=== PATIENT | male | born 1985 | race African-American/Black ===

== ENCOUNTER 2017-11-17 06:05 | Day surgery (SDC) | payer OTHER ==
[2017-11-17] MEDS ORDERED: dexameTHASONE 4 MG/ML 1ML VIAL (J1100) As Ordered (06:24)
[2017-11-17] MEDS ORDERED: LR 1,000 ML IV ×3 (06:30→09:15)
[2017-11-17] MEDS ORDERED: ONDANSETRON 4MG/2ML VIAL (J2405) As Ordered (07:04)
[2017-11-17] MEDS ORDERED: LIDOCAINE 2% INJ 100 MG/5 ML SDV (FOR ANES.) As Ordered (07:04)
[2017-11-17] MEDS ORDERED: MIDAZOLAM INJ 2 MG/2 ML VIAL (J2250) As Ordered (07:04)
[2017-11-17] MEDS ORDERED: fentaNYL 100 MCG/2 ML INJECTION (J3010) As Ordered ×2 (07:04→07:55)
[2017-11-17] MEDS ORDERED: PROPOFOL 200 MG/20 ML VIAL As Ordered (07:04)
[2017-11-17] MEDS ORDERED: GLYCOPYRROLATE INJ 0.2 MG/ML 2 ML VIAL As Ordered (07:04)
[2017-11-17] MEDS ORDERED: NEOSTIGMINE 10 MG/10 ML VIAL (J2710) As Ordered (07:04)
[2017-11-17] MEDS ORDERED: ROCURONIUM BROMIDE 50 MG/5 ML VIAL As Ordered ×2 (07:04→08:39)
[2017-11-17] MEDS: dexameTHASONE 4 MG/ML 1ML VIAL (J1100) IV (07:40)
[2017-11-17] MEDS: LIDOCAINE W/EPINEPHRINE 1% 20ML VIAL As Ordered (07:51)
[2017-11-17] MEDS ORDERED: LABETALOL HCL 100 MG/20 ML VIAL As Ordered (08:09)
[2017-11-17] MEDS: METHYLENE BLUE 0.5% (5MG/ML) 10 ML AMP (PROVAYBLUE)(Q9968 PER 1MG) As Ordered (08:10)
[2017-11-17] MEDS: EPINEPHrine 1MG/ML INJ 30ML MD-VIAL As Ordered (08:10)
[2017-11-17] MEDS: SODIUM CHLORIDE 0.9% NASAL GEL 15GM (AYR) As Ordered (08:34)
[2017-11-17] MEDS ORDERED: ONDANSETRON 4MG/2ML VIAL (J2405) IV (09:15)
[2017-11-17] MEDS ORDERED: fentaNYL 100 MCG/2 ML INJECTION (J3010) IV (09:15)
[2017-11-17] MEDS ORDERED: PERCOCET 5MG/325MG TAB As Ordered (09:24)
[2017-11-17] MEDS: PERCOCET 5MG/325MG TAB PO ×2 (09:24→10:10)
== END 2017-11-17 10:40 | disposition home or self-care (01) ==
LOC: M SDC 06:05
DX: J34.2 Deviated nasal septum (principal); R06.83 Snoring; J34.3 Hypertrophy of nasal turbinates; J32.9 Chronic sinusitis, unspecified; Z88.7 Allergy status to serum and vaccine
CPT/HCPCS: 30520

== ENCOUNTER → 2018-09-20 | Outpatient (CLI) | payer OTHER ==
[~2018-09-20] MED LIST: FISH306C PO
--- NOTE | 2018-09-20 19:35 | REP ---
MAXILLOFACIAL CT WITHOUT CONTRAST: HISTORY: Chronic maxillary sinusitis. Mucosal thickening is present in the right ethmoid and sphenoid sinus. There is complete opacification of the right sphenoid sinus. Mild mucosal thickening is present in the right ethmoid sinus. The remaining sinuses are clear. The osteomeatal units are patent. The middle and inferior nasal turbinates are partially paradoxical. The nasal septum is midline. The cribriform plate, medial swan of the orbits and optic canals are intact. The carotid canals form a segment of the posterolateral swan of the sphenoid sinus. The sphenoid sinus septa insert into the internal carotid canals swan. IMPRESSION: Sinus mucosal thickening as described above. Electronically Signed by Shalom Luna MD 09/21/2018 08:19 A
== END ==
LOC: M RAD 16:15
PROVIDERS: ATTEND Physician Assistant Medical
DX: J31.0 Chronic rhinitis (principal)

== ENCOUNTER 2018-10-19 07:01 | Day surgery (SDC) | payer OTHER ==
[~2018-10-19] VITALS: Ht 180.3 cm; Wt 89.8 kg
[~2018-10-19 07:01] MED LIST changes: +AMLO10TA5 PO; +CETI10CH PO; +LIDOCAINE 1% MDV 20ML VIAL SQ PRN; +LR 1,000 ML IV ONE
[2018-10-19] MEDS ORDERED: dexameTHASONE 4 MG/ML 1ML VIAL (J1100) IV ONE (07:45)
[2018-10-19] MEDS ORDERED: propofoL 200 MG/20 ML VIAL As Ordered ONE ×2 (07:51→10:43)
[2018-10-19] MEDS ORDERED: dexameTHASONE 4 MG/ML 1ML VIAL (J1100) As Ordered ONE (07:51)
[2018-10-19] MEDS ORDERED: LIDOCAINE 2% INJ 100 MG/5 ML SDV (FOR ANES.) As Ordered ONE (07:51)
[2018-10-19] MEDS ORDERED: ONDANSETRON 4MG/2ML VIAL (J2405) As Ordered ONE (07:51)
[2018-10-19] MEDS ORDERED: fentaNYL 250 MCG/5 ML INJECTION (J3010) As Ordered ONE (08:00)
[2018-10-19] MEDS ORDERED: MIDAZOLAM INJ 2 MG/2 ML VIAL (J2250) As Ordered ONE (08:00)
[2018-10-19] MEDS ORDERED: LIDOCAINE W/EPINEPHRINE 1% 20ML VIAL As Ordered ONE (08:14)
[2018-10-19] MEDS ORDERED: SODIUM CHLORIDE 0.9% NASAL GEL 15GM (AYR) As Ordered ONE (08:14)
[2018-10-19] MEDS ORDERED: METHYLENE BLUE 0.5% (5MG/ML) 10 ML AMP (PROVAYBLUE)(Q9968 PER 1MG) As Ordered ONE (08:14)
[2018-10-19] MEDS ORDERED: EPINEPHrine 1MG/ML INJ 30ML MD-VIAL As Ordered ONE ×3 (08:15→11:09)
[2018-10-19] MEDS ORDERED: ACETAMINOPHEN 1000MG 100ML IV BTL (OFIRMEV) (J0131 PER 10MG) As Ordered ONE (09:26)
[2018-10-19] MEDS ORDERED: SUGAMMADEX SODIUM 500 MG/5 ML VIAL (BRIDION) As Ordered ONE (09:26)
[2018-10-19] MEDS ORDERED: LACRILUBE (AKWA TEARS) OPHTH OINT 3.5 GM As Ordered ONE (09:30)
[2018-10-19] MEDS ORDERED: SEVOFLURANE INHAL SOLN 250 ML BTL As Ordered ONE (09:38)
[2018-10-19] MEDS ORDERED: DESFLURANE 240 ML INHALANT As Ordered ONE ×2 (09:39→09:40)
[2018-10-19] MEDS ORDERED: ESMOLOL INJ 100MG/10ML VIAL As Ordered ONE (09:44)
[2018-10-19] MEDS ORDERED: ROCURONIUM BROMIDE 50 MG/5 ML VIAL As Ordered ONE (09:49)
[2018-10-19] MEDS ORDERED: LABETALOL HCL 100 MG/20 ML VIAL As Ordered ONE (09:55)
[2018-10-19] MEDS ORDERED: hydrALAZINE INJ 20 MG/ML VIAL As Ordered ONE (10:18)
[2018-10-19] MEDS ORDERED: fentaNYL 100 MCG/2 ML INJECTION (J3010) As Ordered ONE ×2 (10:38→11:44)
[2018-10-19] MEDS ORDERED: fentaNYL 100 MCG/2 ML INJECTION (J3010) IV PRN (13:15)
[2018-10-19] MEDS ORDERED: ONDANSETRON 4MG/2ML VIAL (J2405) IV PRN (13:15)
[2018-10-19] MEDS ORDERED: LR 1,000 ML IV SCH ×2 (13:15)
[2018-10-19] MEDS ORDERED: METOCLOPRAMIDE INJ 10MG/2ML VIAL (J2765) IV PRN (13:15)
[2018-10-19] MEDS: oxyCODONE 5MG TAB PO PRN ×2 (13:22→13:48)
[2018-10-19 14:40] VITALS: BP 170/81
--- NOTE | 2018-11-02 04:56 | RO ---
DATE OF PROCEDURE: 10/19/2018 PREOPERATIVE DIAGNOSES: 1. Chronic right ethmoid sinusitis. 2. Chronic right sphenoid sinusitis. POSTOPERATIVE DIAGNOSES: 1. Chronic right ethmoid sinusitis. 2. Chronic right sphenoid sinusitis. PROCEDURE PERFORMED: 1. Stereotactic surgery using Brainlab. 2. Endoscopic right anterior and posterior ethmoidectomy. 3. Endoscopic right sphenoidotomy. 4. Implantation of the Propel Contour stent to the right sphenoid and Propel regular to the right ostiomeatal complex. SURGEON: Dr. Andrea Diego SOFTWARE QUALITY TEST ENGINEER: ANESTHESIA: General. CLINICAL PREAMBLE: This 33-year-old male presented to the office complaining of chronic headaches mostly from the right side. He also has sinus symptoms referable from the right side as well. CT scan confirmed presence of right chronic ethmoid sinusitis and right chronic sphenoid sinusitis. Management options including the surgery listed above have been discussed. Patient understood and consented to the procedure. OPERATING ROOM (OR) NARRATION: Patient was identified in preoperative holding and brought to operating room in stable condition. In supine position on the operating table, the patient received general anesthesia followed by orotracheal intubation without incident. Patient prepped and draped in the usual fashion for the procedure. Both eyes were lubricated and protected using the Tegaderm. The headband for the Brainlab was successfully attached to the forehead. The surface matching was obtained from the Brainlab system and the patient's facial anatomy. Both sides of the nasal cavity were then packed using pledgets soaked in 1:1000 epinephrine. After a waiting period, the pledgets were removed. Using rigid 0-degree nasal endoscope, inspection of the nasal cavity was carried out to the left and the right side. The right middle nasal turbinate was gently medialized. The right ethmoidalis bulla was identified and resected using Blakesley forceps. Diseased anterior ethmoid air cells were then taken down as well. Basal lamella was identified and penetrated. Diseased posterior ethmoid air cells were then taken down as well. At this time, attention was turned to performing the right sphenoidotomy. The anterior surface of the right sphenoid sinus was positively identified and confirmed with the Brainlab system. Sphenoidotomy was then performed using a combination of the sphenoid punch and the Kerrison forceps. The polypoid tissue surrounding the sphenoid ostium was debrided using the microdebrider as well. Fungal elements were noted in the right sphenoid sinus cavity. Using warm normal saline solution, the right sphenoid sinus cavity was copiously irrigated to clear the fungal elements. The underlying mucosa was visualized inside the right sphenoid sinus,and found to be edematous and erythematous. The Propel Contour stent was then placed into the right sphenoid os. The regular Propel stent was then placed into the right ostiomeatal complex area. Hemostasis was achieved by the end of the case. ESTIMATED BLOOD LOSS: Approximately 50 mL. No complication was encountered. General anesthesia was reversed, and patient was extubated and brought to recovery room in stable condition. In the recovery area, patient exhibits full and symmetrical extraocular motions with no evidence of periorbital ecchymosis. MTDD
== END 2018-10-19 15:02 | disposition home or self-care (01) ==
LOC: M SDC 07:01
PROVIDERS: ATTEND Otolaryngology
DX: J32.3 Chronic sphenoidal sinusitis (principal); J32.2 Chronic ethmoidal sinusitis; I10 Essential (primary) hypertension; D55.0 Anemia due to glucose-6-phosphate dehydrogenase [G6PD] deficiency; Z79.899 Other long term (current) drug therapy
CPT/HCPCS: 31255; 88305; C2625; J0131; J1100; J2250; J2405; J3010; Q9968